=== PATIENT | female | born 1975 | race Caucasian/White ===

== ENCOUNTER 2022-02-26 11:04 | Emergency (ER) | payer BC, SELFPAY ==
--- NOTE | ~2022-02-26 | XR_ITS ---
EXAMINATION: XR chest 2V DATE: 02/26/2022 11:57 INDICATION: Cough. TECHNIQUE: Frontal and lateral views of the chest were obtained. COMPARISON: None. FINDINGS: The chest demonstrates clear lungs without pneumonia, pleural effusion, or pneumothorax. Th e heart size is normal. There are surgical clips in the area of the stomach. IMPRESSION: 1. No acute cardiopulmonary disease. Reviewed, dictated and finalized at location A. 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
--- NOTE | 2022-02-26 11:08 | ED.URI ---
HPI - URI/Sore Throat General Chief Complaint: Skin/Abscess/Foreign Body Stated Complaint: cough,suture removal Time Seen by Provider: 02/26/22 11:08 Source: patient Mode of arrival: ambulatory Limitations: no limitations History of Present Illness HPI Narrative: Elizabet is a 47-year-old female patient presenting to the clinic today for evaluation of a cough and needing suture removal in the clinic today. She reports she had a gastric sleeve done in [place] 1 week ago. States that they told her to take the sutures out of her abdomen in 1 week. She attempted to move remove the suture but was able to the sutures and felt that she needed some med to take them out for her. She also reports that she has a cough since surgery. Had but multiple breathing treatments after surgery due to coughing and they did a chest x-ray at that time and was negative. Reports that the surgeon told her to follow up with a provider if she continues to have coughing. She denies any shortness of breath or chest pain. She denies any URI symptoms. MD elicited complaint: cough and other (Suture room) Related Data Home Medications Medication Instructions Recorded Confirmed atorvastatin 40 mg tablet 40 mg PO DAILY 02/26/22 02/26/22 dulaglutide 1.5 mg/0.5 mL 1.5 mg subcut WEEKLY 02/26/22 02/26/22 subcutaneous pen injector (Trulicity) magaldrate 480 mg chewable tablet 420 mg PO BID 02/26/22 02/26/22 metoprolol succinate 50 mg 50 mg PO DAILY 02/26/22 02/26/22 tablet,extended release 24 hr sertraline 100 mg tablet 100 mg PO DAILY 02/26/22 02/26/22 Allergies Allergy/AdvReac Type Severity Reaction Status Date / Time morphine AdvReac Severe Anaphylaxis Verified 02/26/22 11:32 Sulfa (Sulfonamide AdvReac Mild Hives Verified 02/26/22 11:31 Antibiotics) Review of Systems Review of Systems: Pertinent positives per HPI. Patient denies any fever, chills, rash, headache, visual changes, dizziness, shortness of breath, chest pain, palpitations, nausea, vomiting, diarrhea, constipation, abdominal pain, or any urinary issues. PMFSH Comments At the time of my signature, I reviewed and agree with the nursing past medical, surgical, social, and family history. There is no relevant family history pertinent to the patient complaint. Exam Narrative: General: Well-developed, well nourished, in no apparent distress Head: Normocephalic, atraumatic Eyes: Pupils equally round and reactive to light bilaterally, EOM intact, sclera and conjunctive clear, no discharge, lids normal Ears: TMs intact and clear, ear canals clear, no drainage, grossly hearing normal. Nose: Nares patent, no discharge, no inflammation, no sinus tenderness. Mouth: Oral pharynx without lesions or masses, good dentition, MMM. Neck: Supple, trachea midline, no enlargement of anterior or posterior cervical nodes, no thyroid masses or goiter palpable. Cardio: Regular rate and rhythm, s1 and s2 normal, no murmur appreciated. Resp: Clear to auscultation bilaterally, no rhonchi, rales, wheezing or rubs, nonproductive dry cough Abdomen: Soft, pliable, nondistended, 3 small incisions with sutures to left, right, and mid abdomen. Mild redness noted around the incisions without sign of infection, mild tenderness to palpation, bowel sounds present all 4 quadrants, no organomegaly, no CVAT tenderness, 3 sutures removed using a tooth forceps and scissors Course Course Emergency Course: Portions of this record may have been created with voice recognition software. Level of Care: Express Care Visit Vital Signs Vital signs: Vital Signs Temperature 36.3 C L 02/26/22 11:21 Pulse Rate 64 02/26/22 11:21 Respiratory Rate 20 02/26/22 11:21 Blood Pressure 110/67 02/26/22 11:21 Pulse Oximetry 100 02/26/22 11:21 Oxygen Delivery Room Air 02/26/22 11:21 Temperature 36.3 C L 02/26/22 11:21 Pulse Rate 64 02/26/22 11:21 Respiratory Rate 20 02/26/22 11:21 Blood Pressure 110/
[2022-02-26 11:21] VITALS: BP 110/67; PULSE 64; RESP 20; TEMP 36.3; O2SAT 100
== END 2022-02-26 12:18 | disposition home or self-care (01) ==
PROVIDERS: Emergency Provider Nurse Practitioner Family
DX: Z48.02 Encounter for removal of sutures (principal); Z98.84 Bariatric surgery status; R05.1 Acute cough; E78.00 Pure hypercholesterolemia, unspecified; I10 Essential (primary) hypertension; K21.9 Gastro-esophageal reflux disease without esophagitis; E11.9 Type 2 diabetes mellitus without complications
CPT/HCPCS: 71046; 99203; G0463

== ENCOUNTER 2023-01-29 11:12 | Emergency (ER) | payer BC, SELFPAY ==
--- NOTE | ~2023-01-29 | CT_ITS ---
EXAMINATION: CT abdomen pelvis w con DATE: 01/29/2023 13:01 INDICATION: Abdominal pain and back pain. TECHNIQUE: Computed tomography (CT) of the abdomen and pelvis was performed with 100 cc Omnipaque 350 intravenous contrast. The dose-length product was 1265.11 mGy-cm. Automated exposure control and ite rative reconstruction technique were employed. COMPARISON: None. FINDINGS: Lung bases are unremarkable. Heart size normal. No significant pleural or pericardial effus ion. Small fat-containing ventral hernia in the upper abdomen. No significant vascular abnormality. N o lymphadenopathy. There are changes of gastric bypass surgery. The liver, spleen, pancreas, and right adrenal gland and kidneys are unremarkable. No free air or free fluid. There is a low-density 8 mm mass in the left ad renal gland, likely benign adenoma. Moderate lumbar spondylosis. IMPRESSION: 1. No acute abdominal abnormality. Reviewed, dictated and finalized at location A. LFISH MANAGER
[2023-01-29 11:20] VITALS: BP 134/76; PULSE 104; RESP 20; TEMP 36.4; O2SAT 99
[2023-01-29 12:08] LABS: Basophils Percent Auto 0.3 % (0.2-1.2); Eosinophils Absolute Auto 0.1 K/mm3 (0-0.3); Eosinophils Percent Auto 2.3 % (0-4.4); Hematocrit 32.7 % (37.0-47.0); Hemoglobin 10.2 g/dL (12.0-15.0); Immature Granulocyte Absolute 0.01 K/mm3 (0.00-0.031); Immature Granulocyte Percent A 0.2 % (0-0.5); Lymphocytes Absolute Auto 2.22 K/mm3 (0.9-3.2); Lymphocytes Percent Auto 36.5 % (18.3-44.2); Mean Corpuscular HGB Conc 31.2 g/dl (32-36); Mean Corpuscular Hemoglobin 26.1 pg (26-34); Mean Corpuscular Volume 83.6 fl (80-100); Mean Platelet Volume 9.4 fl (7.4-10.4); Monocytes Absolute Auto 0.3 K/mm3 (0.1-0.6); Monocytes Percent Auto 5.3 % (2.6-8.5); Neutrophils Absolute Auto 3.4 K/mm3 (1.3-6.7); Neutrophils Percent Auto 55.4 % (45.5-73.1); Platelet Count Result 298 k/mm3 (150-375); Red Blood Count 3.91 M/mm3 (4.2-5.4); Red Cell Distribution Width 12.7 % (11.5-14.5); White Blood Count 6.1 K/mm3 (4.5-10.0)
[2023-01-29 12:17] LABS: Appearance Urine Turbid (Clear); Bacteria Urine 4+ /hpf; Bilirubin Urine Negative (Negative); Blood Urine Negative (Negative); Color Urine Dark Yellow (Yellow); Glucose Urine UA Negative (Negative); Ketones Urine Trace mg/dL (Negative); Leukocyte Esterase Ur Trace LEU/UL (Negative); Need Manual Microscopic Reviewed; Nitrate Urine Negative (Negative); Non Pathogenic Casts 0-2; Protein Urine Negative (Negative); Specific Grav Ur 1.027 (1.001-1.035); Squamous Epithelial Cell Urine Many /hpf (Few)
[2023-01-29 12:18] LABS: Alanine Aminotransferase 19 U/L (6-35); Albumin Level 4.1 g/dL (3.5-5.1); Alkaline Phosphatase 89 U/L (38-126); Anion Gap 10 mmol/L (8-16); Aspartate Amino Transferase 22 U/L (14-36); Bilirubin,Total 0.5 mg/dL (0.2-1.3); Blood Urea Nitrogen 12 mg/dL (7-17); Calcium 8.8 mg/dL (8.4-10.2); Carbon Dioxide 24 mmol/L (22-30); Chloride 104 mmol/L (98-107); Estimated CRCL calculation 124 ml/min; Estimated Glomerular Filt Rate > 60; Glucose 101 mg/dL (65-110); Lipase 77 U/L (23-300); Potassium 3.8 mmol/L (3.4-5.0); Sodium 138 mmol/L (137-145)
[2023-01-29 12:19] LABS: Lactic Acid Reflex 1.5 mmol/L (0.7-2.0)
--- NOTE | 2023-01-29 12:22 | ED.BACK ---
HPI - Back Pain/Injury General Chief Complaint: Back Pain/Injury Stated Complaint: back pain Time Seen by Provider: 01/29/23 11:40 History of Present Illness HPI Narrative: 47-year-old female present to the emergency department for evaluation of right-sided lower back pain. Patient reports the pain has been worsening over the past few days. Patient states she does have some rectal pressure but did have a bowel movement yesterday and does not suspect that she is constipated. Patient has no prior history of kidney stones. Related Data Home Medications Medication Instructions Recorded Confirmed atorvastatin 40 mg tablet 40 mg PO DAILY 02/26/22 01/29/23 magaldrate 480 mg chewable tablet 420 mg PO BID 02/26/22 01/29/23 metoprolol succinate 50 mg 50 mg PO DAILY 02/26/22 01/29/23 tablet,extended release 24 hr sertraline 100 mg tablet 100 mg PO DAILY 02/26/22 01/29/23 semaglutide 0.25 mg or 0.5 mg (2 mg subcut 01/29/23 mg/3 mL) subcutaneous pen injector (AccuVein) Allergies Allergy/AdvReac Type Severity Reaction Status Date / Time morphine AdvReac Severe Anaphylaxis Verified 02/26/22 11:32 Sulfa (Sulfonamide AdvReac Mild Hives Verified 02/26/22 11:31 Antibiotics) Review of Systems Review of Systems: All systems reviewed & are unremarkable except as noted in HPI and below Exam Narrative: APPEARANCE: Well appearing, no pain, no distress, well-nourished. HEAD: normocephalic, atraumatic. EYES: PERRLA/EOMI, conjunctivae clear. NOSE: Normal no drainage EARS:TMS clear with good light reflex. THROAT: Pharynx clear, no exudate. NECK: Supple. No adenopathy, no masses. RESPIRATORY: Airway patent, respirations nonlabored. Clear to auscultation bilaterally, no rales, rhonchi, wheezing. CARDIOVASCULAR: Regular rate and rhythm without murmurs rubs or gallops. ABDOMINAL: Soft, nontender, nondistended, normal bowel sounds MUSCULOSKELETAL: right lower back tenderness to palpation NEURO: Alert. Cranial nerves II through XII intact. Course Course Emergency Course: 47-year-old female presenting ED for evaluation of right lower back pain. Patient is afebrile with no leukocytosis and a stable hemoglobin of 10.2. Patient's kidney function is normal and patient has a lactic acid of 1.5. Urine does show ketones ago esterase white blood cells squamous cells and high bacteria. Patient was treated for urinary tract infection with Rocephin and Pyridium. CT scan showed no acute abnormality. patient was treated for urinary tract infection but also provide medications for musculoskeletal back pain. Patient was updated on the results of the workup and the plan for treatment. All questions and concerns were addressed. Patient was well-appearing at time of discharge. Vital Signs Vital signs: Vital Signs Temperature 97.5 F L 01/29/23 11:20 Pulse Rate 104 H 01/29/23 11:20 Respiratory Rate 20 01/29/23 11:20 Blood Pressure 134/76 01/29/23 11:20 Pulse Oximetry 99 01/29/23 11:20 Oxygen Delivery Room Air 01/29/23 11:20 Temperature 98.3 F 01/29/23 14:40 Pulse Rate 76 01/29/23 14:40 Respiratory Rate 16 01/29/23 14:40 Blood Pressure 128/80 01/29/23 14:40 Pulse Oximetry 100 01/29/23 14:40 Oxygen Delivery Room Air 01/29/23 11:20 MDM - Back Pain/Injury Differential Diagnosis Differential diagnosis: Likely lumbar radiculopathy, sciatica, strain of lumbar region, pyelonephritis and thoracic back pain Lab Data Attestation: I reviewed the patient's lab results. 01/29/23 12:00 01/29/23 12:00 Labs: Lab Results 01/29/23 Range/Units 12:00 WBC 6.1 (4.5-10.0) K/mm3 RBC 3.91 L (4.2-5.4) M/mm3 Hgb 10.2 L (12.0-15.0) g/dL Hct 32.7 L (37.0-47.0) % MCV 83.6 (80-100) fl MCH 26.1 (26-34) pg MCHC 31.2 L (32-36) g/dl RDW 12.7 (11.5-14.5) % Plt Count 298 (150-375) k/mm3 MPV 9.4 (7.4-10.4) fl Immature Gran % (Auto) 0.2 (0-0.5) % Neut %
[2023-01-29] MEDS: KETOROLAC 15 MG/ML VIAL (*BKC) IV PUSH (12:42)
[2023-01-29 12:48] LABS: Add Urine Microscopic? YES
[2023-01-29] MEDS: PHENAZOPYRIDINE HCL 100 MG TABLET 200 MG PO (14:06)
[2023-01-29 14:40] VITALS: BP 128/80; PULSE 76; RESP 16; TEMP 36.8; O2SAT 100
== END 2023-01-29 14:42 | disposition home or self-care (01) ==
PROVIDERS: Emergency Provider Emergency Medicine
DX: N39.0 Urinary tract infection, site not specified (principal); M54.50 Low back pain, unspecified
CPT/HCPCS: 36415; 74177; 80053; 81001; 83605; 83690; 85025; 87086; 87088; 96365; 96375; 99284; A9270; J0696; J1885; Q9967

== ENCOUNTER 2023-08-01 11:49 | Emergency (ER) | payer BC, SELFPAY ==
[2023-08-01 12:01] VITALS: BP 121/82; PULSE 71; RESP 20; TEMP 36.6; O2SAT 100
[2023-08-01] MEDS: LIDOCAINE HCL 1% LOCAL INJ 2 ML AMPUL INFILTRATE (12:19)
--- NOTE | 2023-08-01 12:44 | ED.SKABFB ---
HPI - Skin/Abscess/Foreign Bdy General Chief complaint: Skin/Abscess/Foreign Body Stated complaint: Abscess Time Seen by Provider: 08/01/23 12:05 Source: patient and RN notes reviewed Mode of arrival: ambulatory Limitations: no limitations History of Present Illness HPI narrative: Patient presents today complaining of a Bartholin's abscess to the left inner labia x4 days. Reports symptoms have worsened with increased swelling and pain since onset. Denies any current drainage. Patient states she has had 3 or 4 other abscesses such as this in the past in the same area that she has had drained. No [id number]-masbwsv treatment prior to arrival. Related Data Home Medications Medication Instructions Recorded Confirmed atorvastatin 40 mg tablet 40 mg PO DAILY 02/26/22 08/01/23 metoprolol succinate 50 mg 50 mg PO DAILY 02/26/22 08/01/23 tablet,extended release 24 hr sertraline 100 mg tablet 100 mg PO DAILY 02/26/22 08/01/23 semaglutide 0.25 mg or 0.5 mg (2 2 mg subcut DIRECTED 01/29/23 08/01/23 mg/3 mL) subcutaneous pen injector (Ozempic) allopurinol 100 mg tablet 100 mg DIRECTED 08/01/23 08/01/23 Allergies Allergy/AdvReac Type Severity Reaction Status Date / Time morphine AdvReac Severe Anaphylaxis Verified 02/26/22 11:32 Sulfa (Sulfonamide AdvReac Mild Hives Verified 02/26/22 11:31 Antibiotics) Review of Systems Review of Systems: CONSTITUTIONAL: Denies body aches, fever, chills, or sweats. EYES: Denies visual changes, redness, or discharge. ENT: Denies rhinorrhea, congestion, sore throat, or otalgia. CARDIOVASCULAR: Denies chest pain, palpitations, or edema. RESPIRATORY: Denies cough or dyspnea. GASTROINTESTINAL: Denies abdominal pain, nausea, vomiting, or diarrhea. GENITOURINARY: + abscess SKIN: Denies rash, itching, or wounds. MUSCULOSKELETAL: Denies back pain, joint pain, or myalgia. NEUROLOGIC: Denies headache, numbness, tingling, or weakness. PSYCH: Denies depression or anxiety. PMFSH Comments At time of signature, I have reviewed and agree with nursing past medical, surgical, social and family history unless otherwise noted. Please see nursing chart for further information. There is no relevant family history pertinent to the presenting complaint Exam Narrative: GENERAL: Well-appearing, well-nourished, and in no acute distress. HEAD: Normocephalic, atraumatic. EYES: EOMI. No redness or drainage. Conjunctivae normal. ENT: Mucous membranes pink and moist. NECK: Normal AROM. CHEST: No respiratory distress. : 2.5 x 2 cm fluctuant erythematous abscess to the left inner labia. Very tender to palpation. EXTREMITIES: Normal range of motion. No edema. SKIN: Warm, dry, no rash. Capillary refill normal. Normal skin turgor. NEURO: No focal deficits. Alert and oriented x3. Gait steady. PSYCH: Normal affect. No signs of depression or anxiety. Course Course Level of Care: Express Care Visit Vital Signs Vital signs: Vital Signs Temperature 97.8 F 08/01/23 12:01 Pulse Rate 71 08/01/23 12:01 Respiratory Rate 20 08/01/23 12:01 Blood Pressure 121/82 08/01/23 12:01 Pulse Oximetry 100 08/01/23 12:01 Oxygen Delivery Room Air 08/01/23 12:01 Temperature 97.8 F 08/01/23 12:01 Pulse Rate 71 08/01/23 12:01 Respiratory Rate 20 08/01/23 12:01 Blood Pressure 121/82 08/01/23 12:01 Pulse Oximetry 100 08/01/23 12:01 Oxygen Delivery Room Air 08/01/23 12:01 Reviewed Procedures Abscess I/D bartholin's gland: Date of Incision: 08/01/23 Time of Incision: 12:51 Side (if applicable): left Local Anesthetic: lidocaine 1% Amount of anesthesia used (mL): 2 Technique: incised with #11 blade Amount of fluid expressed (mL): 3 Irrigation: No Packing used?: none I&D Results: Pus Complications: pain and bleeding Abcess I&D Additional Comments: Wound cleansed with Betadine. 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
== END 2023-08-01 12:53 | disposition home or self-care (01) ==
PROVIDERS: Emergency Provider Nurse Practitioner; PCP Family Medicine
DX: N75.1 Abscess of Bartholin's gland (principal); E78.00 Pure hypercholesterolemia, unspecified; I10 Essential (primary) hypertension; K21.9 Gastro-esophageal reflux disease without esophagitis; E11.9 Type 2 diabetes mellitus without complications; F41.9 Anxiety disorder, unspecified; F32.A Depression, unspecified; Z98.84 Bariatric surgery status
CPT/HCPCS: 56420; 99213; G0463

== ENCOUNTER 2023-10-30 12:10 | Emergency (ER) | payer BC, SELFPAY ==
--- NOTE | ~2023-10-30 | XR_ITS ---
EXAMINATION: XR chest 2V DATE: 10/30/2023 13:16 INDICATION: 3 weeks of cough TECHNIQUE: PA and lateral views of the chest were obtained. COMPARISON: Chest radiograph dated 02/26/2022 FINDINGS: The lungs are clear with no focal airspace opacities, pulmonary edema, pleural effusion or pneumothor ax. The cardiomediastinal silhouette is normal. Mild to moderate thoracic spondylosis. Surgical clips in the epigastric region. IMPRESSION: 1. No acute cardiopulmonary disease. Reviewed, dictated and finalized at location A.
[2023-10-30 12:26] VITALS: BP 118/82; PULSE 95; RESP 16; TEMP 36.7; O2SAT 100
--- NOTE | 2023-10-30 13:08 | ED.URI ---
HPI - URI/Sore Throat General Chief Complaint: Upper Respiratory Infection Stated Complaint: Cough,Drainage,Fever,Earache,Sinus Problems Time Seen by Provider: 10/30/23 13:02 Source: patient and RN notes reviewed Mode of arrival: ambulatory Limitations: no limitations History of Present Illness HPI Narrative: Patient presents today with a productive cough x3 weeks with right-sided nasal congestion and sinus pressure, mild shortness of breath. States she was seen at her PCPs office 2 weeks ago and given a prescription for amoxicillin and a Medrol Dosepak for her sinus symptoms and right ear discomfort. States she finished these medications without relief symptoms. Reports a subjective fever last night due to sweating. She has been taking Mucinex, Benadryl, and cold and flu medication without much relief. Related Data Home Medications Medication Instructions Recorded Confirmed atorvastatin 40 mg tablet 40 mg PO DAILY 02/26/22 10/30/23 metoprolol succinate 50 mg 50 mg PO DAILY 02/26/22 10/30/23 tablet,extended release 24 hr sertraline 100 mg tablet 100 mg PO DAILY 02/26/22 10/30/23 semaglutide 0.25 mg or 0.5 mg (2 2 mg subcut DIRECTED 01/29/23 10/30/23 mg/3 mL) subcutaneous pen injector (Ozempic) allopurinol 100 mg tablet 100 mg PO DIRECTED 08/01/23 10/30/23 cyanocobalamin (vitamin B-12) 1,000 mcg IM MONTHLY 10/30/23 10/30/23 1,000 mcg/mL injection solution ferrous sulfate 325 mg (65 mg 325 mg PO DAILY 10/30/23 10/30/23 iron) tablet lisinopril 2.5 mg tablet 2.5 mg PO DAILY 10/30/23 10/30/23 Allergies Allergy/AdvReac Type Severity Reaction Status Date / Time morphine AdvReac Severe Anaphylaxis Verified 10/30/23 12:48 Sulfa (Sulfonamide AdvReac Mild Hives Verified 10/30/23 12:48 Antibiotics) Review of Systems Review of Systems: CONSTITUTIONAL: Denies body aches, chills. + sweats, subjective fever EYES: Denies visual changes, redness, or discharge. ENT: Denies rhinorrhea. + nasal congestion, sinus pressure, right ear discomfort CARDIOVASCULAR: Denies chest pain, palpitations, or edema. RESPIRATORY: + cough, mild shortness of breath GASTROINTESTINAL: Denies abdominal pain, nausea, vomiting, or diarrhea. GENITOURINARY: Denies dysuria or hematuria. SKIN: Denies rash, itching, or wounds. MUSCULOSKELETAL: Denies back pain, joint pain, or myalgia. NEUROLOGIC: Denies headache, numbness, tingling, or weakness. PSYCH: Denies depression or anxiety. PMFSH Comments At time of signature, I have reviewed and agree with nursing past medical, surgical, social and family history unless otherwise noted. Please see nursing chart for further information. There is no relevant family history pertinent to the presenting complaint Exam Narrative: GENERAL: Mildly ill-appearing, well-nourished, and in no acute distress. HEAD: Normocephalic, atraumatic. EYES: EOMI. No redness or drainage. Conjunctivae normal. ENT: Mucous membranes pink and moist. Nares mildly congested. No rhinorrhea. TMs normal bilaterally. Throat normal. Uvula midline. NECK: Normal AROM. Supple. No lymphadenopathy. CHEST: No respiratory distress. Clear to auscultation. Constant harsh cough noted. HEART: Regular rate and rhythm. No murmur appreciated. EXTREMITIES: Normal range of motion. No edema. SKIN: Warm, dry, no rash. Capillary refill normal. Normal skin turgor. NEURO: No focal deficits. Alert and oriented x3. Gait steady. PSYCH: Normal affect. No signs of depression or anxiety. Course Course Level of Care: Express Care Visit Vital Signs Vital signs: Vital Signs Temperature 98.1 F 10/30/23 12:26 Pulse Rate 95 10/30/23 12:26 Respiratory Rate 16 10/30/23 12:26 Blood Pressure 118/82 10/30/23 12:26 Pulse Oximetry 100 10/30/23 12:26 Temperature 98.1 F 10/30/23 12:26 Pulse Rate 95 10/30/23 12:26 Respiratory Rate 16 10/30/23 12:26 Blood Pressure 118/82 10/30/23 12:26 Pulse Oximetry 100
== END 2023-10-30 13:49 | disposition home or self-care (01) ==
PROVIDERS: Emergency Provider Nurse Practitioner; PCP Family Medicine
DX: J40 Bronchitis, not specified as acute or chronic (principal); J01.90 Acute sinusitis, unspecified; E78.00 Pure hypercholesterolemia, unspecified; I10 Essential (primary) hypertension; Z98.84 Bariatric surgery status; K21.9 Gastro-esophageal reflux disease without esophagitis; E11.9 Type 2 diabetes mellitus without complications; F41.9 Anxiety disorder, unspecified; F32.A Depression, unspecified
CPT/HCPCS: 71046; 99213; G0463

== ENCOUNTER 2024-12-08 16:18 | Emergency (ER) | payer BC, SELFPAY ==
--- NOTE | ~2024-12-08 | XR_ITS ---
EXAMINATION: XR foot LT min 3V, 12/08/2024 17:35 CDT HISTORY: pain to top of foot COMPARISON: No comparisons available. Findings: No acute fracture or malalignment. No significant degenerative changes. Soft tissues unremarkable. Impression: No acute fracture or malalignment. Reviewed, dictated and finalized at location P. Impression: No acute fracture or malalignment.
[2024-12-08 16:46] VITALS: BP 102/74; PULSE 91; RESP 16; TEMP 36.2; O2SAT 96
--- NOTE | 2024-12-08 17:05 | ED.GENADULT ---
HPI - General Adult General Chief complaint: Extremity Injury, Lower Stated complaint: left foot inj, uti Time Seen by Provider: 12/08/24 17:05 Source: patient Mode of arrival: ambulatory Limitations: no limitations History of Present Illness HPI narrative: 49-year-old female patient presents to [facility] with complaints of left foot pain PE and UTI symptoms. Patient states she was at a concert last night but was wearing flats and states when she woke up this morning and went to go stand up the top of her foot was very sore. Patient states she can only walk on her heel. Patient states she did try taking some ibuprofen for the pain. Denies any injury that she is aware of. Patient states that she has also noticed today that she has increased urination increased frequency and at times a little burning but no significant pain with urination and concerned about possible UTI developing. Patient states she did not drink any alcohol last night. Related Data Home Medications ?Medication ?Instructions ?Recorded ?Confirmed ?Last Taken ?Type metoprolol succinate 50 mg 50 mg PO DAILY 02/26/22 10/30/23 Unknown History tablet,extended release 24 hr allopurinol 100 mg tablet 100 mg PO DIRECTED 08/01/23 10/30/23 Unknown History cyanocobalamin (vitamin B-12) 1,000 mcg IM MONTHLY 10/30/23 10/30/23 Unknown History 1,000 mcg/mL injection solution Allergies Allergy/AdvReac Type Severity Reaction Status Date / Time morphine AdvReac Severe Anaphylaxis Verified 10/30/23 12:48 Sulfa (Sulfonamide AdvReac Mild Hives Verified 10/30/23 12:48 Antibiotics) Review of Systems Review of Systems: CONSTITUTIONAL: Denies fever, chills, or sweats. EYES: Denies visual changes, redness, or discharge. ENT: Denies rhinorrhea, congestion, sore throat, or otalgia. CARDIOVASCULAR: Denies chest pain, palpitations, or edema. RESPIRATORY: Denies cough or dyspnea. GASTROINTESTINAL: Denies abdominal pain, nausea, vomiting, or diarrhea. GENITOURINARY: Positive dysuria , denies hematuria. SKIN: Denies rash or itching. MUSCULOSKELETAL: Denies back pain, joint pain, or myalgia. Positive left foot pain. NEUROLOGIC: Denies headache, numbness, or weakness. PSYCHIATRIC: Denies anxiety or depression. PMFSH Comments At the time of my signature I agree with nursing past medical history, surgical, social, and family history. There is no relevant family history pertinent to the presenting complaint. Exam Narrative: GENERAL: Well-appearing, well-nourished, and in no acute distress. HEAD: Normocephalic, atraumatic. EYES: PERRLA and EOMI. ENT: Nares clear, no rhinorrhea or epistaxis. Mucous membranes moist. NECK: Supple. No lymphadenopathy CHEST: Clear to auscultation. No respiratory distress. HEART: Regular rate and rhythm. No murmur heard. Normal peripheral pulses. ABDOMEN: Soft, nontender, nondistended, normal active bowel sounds. EXTREMITIES: Patient able to bear weight and ambulate with pain. No surface trauma, ecchymosis, erythema, lesions, ulcers or break in skin integrity. slight swelling noted towards heel area. The L foot is without obvious asymmetry or deformity when compared to the R foot. No bony step-off, tender to palpation over the midfoot. Normal plantar/dorsiflexion, inversion/eversion. Distal motor and neurovascular status are intact SKIN: Warm, dry, no rash. NEURO: No focal deficits. Alert and oriented x3. Course Course Level of Care: Express Care Visit Vital Signs Vital signs: Vital Signs Temperature 36.2 C L 12/08/24 16:46 Pulse Rate 91 12/08/24 16:46 Respiratory Rate 16 12/08/24 16:46 Blood Pressure 102/74 12/08/24 16:46 Pulse Oximetry 96 12/08/24 16:46 Oxygen Delivery Room Air 12/08/24 16:46 Temperature 36.2 C L 12/08/24 16:46 Pulse Rate 91 12/08/24 16:46 Respiratory Rate 16 12/08/24 16:46 Blood Pressure 102/74 12/08/24 16:46 Pulse Oximetry 96 12/08/24 16:46 Oxygen Delivery Room Air 12/08/24 16:46 Vital signs reviewed. Medical Decision Making MDM Narrative Medical decision making narrative: Plan of care for patient is to discharge home. Discussed with her that the x-ray is negative for any acute fracture this is most likely some [place] soft tissue swelling that is causing the foot to be painful especially since she was walking on a lot of concrete last night. Discussed with her that her urine dip is negative and we are going to hold off on the antibiotics until the culture returns however I will be working the Urgent Care to [facility] and if her symptoms significantly increased to call up to the urgent care and I will call her and an antibiotic at that time. Patient verbalized understanding denies any other questions or concerns at this time. Differential Diagnosis Differential Diagnosis: Differential diagnosis: Foot fracture, crush injury, compartment syndrome, contusion, sprain, tendinitis,lisfranc sprain or fracture, avulsion fracture, grown toenail, diabetic ulcer. Uncomplicated lower UTI, uncomplicated UTI, pyelonephritis Vital Signs Vital Signs: Vital Signs Temperature 36.2 C L 12/08/24 16:46 Pulse Rate 91 12/08/24 16:46 Respiratory Rate 16 12/08/24 16:46 Blood Pressure 102/74 12/08/24 16:46 Pulse Oximetry 96 12/08/24 16:46 Oxygen Delivery Room Air 12/08/24 16:46 Temperature 36.2 C L 12/08/24 16:46 Pulse Rate 91 12/08/24 16:46 Respiratory Rate 16 12/08/24 16:46 Blood Pressure 102/74 12/08/24 16:46 Pulse Oximetry 96 12/08/24 16:46 Oxygen Delivery Room Air 12/08/24 16:46 Lab Data Labs: Lab Results 12/08/24 Range/Units 17:20 POC Urine Color Yellow POC Urine Clarity Clear POC Urine pH 6.5 POC Ur Specif [place] 1.015 POC Urine Protein Negative (Negative) POC Ur Glucose (UA) Negative (Negative) POC Urine Ketones Negative (Negative) POC Urine Blood Negative (Negative) POC Urine Nitrite Negative (Negative) POC Urine Bilirubin Negative (Negative) POC Urine Urobilinogen 0.2 POC U Leukocyte Esteras Negative (Negative) Imaging Data Radiologist's impression: [facility] [place] [id number] [facility] [place] [address] XRay Report Signed Patient: Elizabet Robles : 1975 MR#: [id number] Age: 49 Acct:[id number] Loc: [facility] ADM Date: 12/08/[address]: Ordering Physician: Pearl Serrato APRN Date of Service: 12/08/24 Procedure(s): XR foot LT min 3V Accession Number(s): [id number] cc: Pedro, Edmond COPE; Pearl Serrato 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 Findings: No acute fracture or malalignment. No significant degenerative changes. Soft tissues unremarkable. Impression: No acute fracture or malalignment. Reviewed, dictated and finalized at location P. Critical Care Time Critical Care Time Critical Care Time: No Discharge Plan Discharge Clinical Impression: Sprain of foot, left Patient Disposition: Home Condition: Stable Instructions: Antibiotic Form, Foot Contusion (ED) Additional Instructions: Avoid weight bearing until the pain subsides. Ice to the area 20-30 minutes 4-6 times a day Elevate above heart Elastic wrap or orthopedic splint as directed for comfort for the next 5-7 days Tylenol for lesser pain Ibuprofen regularly for the next 2-3 days for the inflammation Follow up with your primary care provider if the condition is not improving within 1 week or sooner if the Condition worsens with numbness, tingling, decrease sensation with weakness to seek ER. Patient Language: Danish Prescriptions: No Action metoprolol succinate 50 mg tablet extended release 24 hr 50 mg PO DAILY allopurinol 100 mg tablet 100 mg PO DIRECTED cyanocobalamin (vitamin B-12) 1,000 mcg/mL solution 1,000 mcg IM MONTHLY Follow-up/Referrals: Yanelis,MD Edmond [Primary Care Provider, Unknown] Time of Disposition: 18:03
[2024-12-08 17:25] LABS: EDUAAPPEAR Clear; EDUABILI Negative (Negative); EDUABLOOD Negative (Negative); EDUACOLOR1 Yellow; EDUAGLUCOSE Negative (Negative); EDUAKETONE Negative (Negative); EDUALEUKO Negative (Negative); EDUANITRATE Negative (Negative); EDUAPH 6.5; EDUAPROTEIN Negative (Negative); EDUASPGRAVITY 1.015; EDUAUROBILI 0.2
== END 2024-12-08 18:08 | disposition home or self-care (01) ==
PROVIDERS: Emergency Provider Nurse Practitioner Family; PCP Family Medicine
DX: S93.602A Unspecified sprain of left foot, initial encounter (principal); X58.XXXA Exposure to other specified factors, initial encounter; I10 Essential (primary) hypertension; E11.9 Type 2 diabetes mellitus without complications; E78.00 Pure hypercholesterolemia, unspecified; K21.9 Gastro-esophageal reflux disease without esophagitis; Z98.84 Bariatric surgery status
CPT/HCPCS: 73630; 81003; 87086; 99213; G0463